=== PATIENT | female | born 1955 | race Caucasian/White ===

== ENCOUNTER 2017-04-27 14:10 | Emergency (ER) | payer OTHER ==
[~2017-04-27] VITALS: Ht 165.1 cm; Wt 52.0 kg
[~2017-04-27 14:10] MED LIST: ALPR.25; DIOV320T PO; LORT7.5T3 PO; PANT20 PO; PROZ20CA11 PO; ULTR50TA OR
[2017-04-27 14:12] VITALS: BP 161/85; PULSE 80; RESP 18; TEMP 98; O2SAT 96
[2017-04-27] MEDS ORDERED: CALC750C21 CHEW (16:27)
[2017-04-27] MEDS ORDERED: RESV1CAP2 PO (16:27)
[2017-04-27] MEDS ORDERED: KPHOS250 PO (16:27)
[2017-04-27] MEDS ORDERED: SIME1CHW13 CHEW (16:27)
[2017-04-27] MEDS ORDERED: DICL1GEL7 TOPICAL (16:27)
[2017-04-27] MEDS ORDERED: DILT1CAP3 PO (16:27)
[2017-04-27] MEDS ORDERED: OMEP20TA93 PO (16:27)
[2017-04-27] MEDS ORDERED: MELA10CA PO (16:27)
[2017-04-27] MEDS ORDERED: VITA100064 PO (16:27)
[2017-04-27] MEDS ORDERED: TYLE325T PO (16:27)
[2017-04-27] MEDS ORDERED: LOSA100T PO (16:27)
[2017-04-27] MEDS ORDERED: LORA-650 PO (16:27)
[2017-04-27] MEDS ORDERED: ALPR0.5T3 PO (16:27)
[2017-04-27] MEDS ORDERED: TRAM50TA PO (16:27)
[2017-04-27] MEDS ORDERED: VITACAP7 PO (16:27)
[2017-04-27] MEDS ORDERED: ASPI-183 PO (16:27)
[2017-04-27] MEDS ORDERED: LACTCAP8 PO (16:27)
[2017-04-27] MEDS ORDERED: MAGN100T2 PO (16:27)
--- NOTE | 2017-04-27 16:55 | PD ---
HPI Chief Complaint: Eye Problems/Injury Time Seen by Provider: 16:16 Travel History International Travel<30 days: No Contact w/Intl Traveler<30days: No Traveled to known affect area: No History of Present Illness HPI 62-year-old female complains of visual change. Patient states that she have a short moment of light flashing in front of the eyes last night. Patient states that the episode lasted about 1 minute. Patient states that she has mild aching headache for the past 2 hours. Patient complains of aching pain to both eyes today. Patient has history of migraine. Patient denies any spiderwebs or floaters. Patient denies any flashing lights vision today. Patient complains of mild photophobia for the past week. Patient has history of anxiety, osteoarthritis, SVT, GERD, hypertension, mitral valve prolapse, Tatum-Danlos syndrome, restless leg syndrome, fibromyalgia. PFSH Past Medical History Arthritis: Yes (OSTEO, SPINE, HANDS, HIPS, KNEE, FEET) Anxiety: Yes Heart Rhythm Problems: Yes (SVT) Cardiovascular Problems: Yes (MITRAL VALVE REFLUX) Diminished Hearing: No Fibromyalgia: Yes GERD: Yes Hiatal Hernia: Yes Hypertension: Yes Insomnia: Yes Medical other: Yes (EHLER'S DANLOS SYNDROME, RESTLESS LEG SYNDROME) Musculoskeletal: Yes (JOINT HYPERMOBILITY (HIPS/KNEES)) Neurologic: Yes (DEGENERATIVE DISC DZ) Migraines: Yes ?: Not Past Surgical History Abdominal Surgery: Yes (ABDOMINAL TAMPONADE) Genitourinary Surgery: Yes (PROLAPSE UTERUS, BLADDER REPAIRED 2011,2012) Social History Alcohol Use: No Tobacco Use: No Substance Use: No Allergies-Medications (Allergen,Severity, Reaction): Coded Allergies: lisinopril (Verified Allergy, Severe, Edema, 04/27/17) mold (Verified Allergy, Severe, Anaphylaxis, 04/27/17) morphine (Unverified Allergy, Mild, GI UPSET, 01/07/17) diatrizoate meglumine (Unverified Allergy, Unknown, 01/07/17) gadobenic acid (Unverified Allergy, Unknown, 01/07/17) gadodiamide (Unverified Allergy, Unknown, 01/07/17) gadoteridol (Unverified Allergy, Unknown, 01/07/17) iodixanol (Unverified Allergy, Unknown, 01/07/17) iohexol (Unverified Allergy, Unknown, 01/07/17) pentazocine (Unverified Allergy, Unknown, 01/07/17) Reported Meds & Prescriptions Reported Meds & Active Scripts Active Reported Tums E-X 750 (Calcium Carbonate (Antacid)) 750 Mg Chew 750 Mg CHEW TID PRN Vitamin D3 (Cholecalciferol) 1,000 Unit Tab 1,000 Units PO DAILY Melatonin 10 Mg Cap 10 Mg PO DAILY Resveratrol 250 Mg Cap 250 Mg PO DAILY Probiotic (Lactobacillus Acidophilus) 10 Billion Cell Cap 1 Cap PO DAILY Magnesium Citrate 100 Mg Tab 1,000 Mg PO BID PRN K-Phos Neutral (Potassium Phos/Sodium Phos) [id number] Mg Tab 500 Mg PO PCHS B Complex (B-Complex Vitamins) 1 Cap 1 Cap PO DAILY Aspirin 325 Mg Tab 325 Mg PO DAILY Tylenol (Acetaminophen) 325 Mg Tab 1,000 Mg PO ONCE Tramadol (Tramadol HCl) 50 Mg Tab 100 Mg PO Q6H PRN Allergy Relief (Loratadine) 10 Mg Tab 10 Mg PO DAILY Simethicone 125 Mg Chw 80 Mg CHEW QID PRN Alprazolam 0.5 Mg Tab 0.5 Mg PO TID PRN Omeprazole 20 Mg Tab 20 Mg PO BID Diclofenac Topical 1% Gel 1 Applic TOPICAL QID Diltiazem 24Hr ER (Diltiazem HCl) 180 Mg Cap.sa.24h 180 Mg PO DAILY Losartan (Losartan Potassium) 100 Mg Tab 100 Mg PO DAILY Review of Systems General / Constitutional: No: Fever Eyes: Positive: Photophobia, No: Visual changes HENT: Positive: Headaches Cardiovascular: No: Chest Pain or Discomfort Respiratory: No: Shortness of Breath Gastrointestinal: No: Abdominal Pain Genitourinary: No: Dysuria Musculoskeletal: No: Pain Skin: No Rash Neurologic: No: Weakness Psychiatric: No: Depression Endocrine: No: Polydipsia Hematologic/Lymphatic: No: Easy Bruising Physical Exam Narrative GENERAL: Well-nourished, well-developed patient. SKIN: Focused skin assessment warm/dry. HEAD: Normocephalic. EYES: No scleral icterus. No injection or drainage. Pupils 2 mm equal reactive. Fundi benign. Extraocular muscle intact. Visual acuity right eye 20 /40, left eye 20/50. NECK: Supple, trachea midline. No JVD or lymphadenopathy. CARDIOVASCULAR: Regular rate and rhythm without murmurs, gallops, or rubs. RESPIRATORY: Breath sounds equal bilaterally. No accessory muscle use. GASTROINTESTINAL: Abdomen soft, non-tender, nondistended. MUSCULOSKELETAL: No cyanosis, or edema. BACK: Nontender without obvious deformity. No CVA tenderness. Neurologic exam normal. Data Data Last Documented VS Vital Signs Date Time Temp Pulse Resp B/P (MAP) Pulse Ox O2 Delivery O2 Flow Rate FiO2 04/27/17 16:10 16 04/27/17 14:12 98.0 80 161/85 (110) 96 Orders Orders Ed Discharge Order (04/27/17 16:47) [facility] Medical Decision Making Medical Screen Exam Complete: Yes Emergency Medical Condition: Yes Differential Diagnosis Differential diagnosis including vitrous separation, complex migraine with visual disturbance, retinal detachment. Narrative Course 62-year-old female with transient flashing light in front of the eyes last night. Patient has history migraine mild photophobia for the past week. Visual acuity right eye 20/40 today and left eye 20/50 today. Patient has no visual deficit today. Diagnosis Primary Impression: Visual disturbance Additional Instructions: Follow-up with college professor. Return if worse. Return immediately if spiderwebs, persistent flashing lights, floaters. Med/Other Pt SpecificInfo: No Change to Meds Disposition: 01 DISCHARGE HOME Condition: Stable Rajinder Arnold MD Apr 27, 2017 16:55
== END 2017-04-27 17:04 | disposition home or self-care (01) ==
LOC: NEPD 14:10
DX: H53.9 Unspecified visual disturbance (principal); R51 Headache; I47.1 Supraventricular tachycardia; I10 Essential (primary) hypertension; F41.9 Anxiety disorder, unspecified; H57.13 Ocular pain, bilateral
CPT/HCPCS: 99282